=== PATIENT | male | born 1990 | race Caucasian/White ===

== ENCOUNTER 2018-01-01 03:11 | Emergency (ER) | payer OTHER ==
[2018-01-01] MEDS ORDERED: methylPREDNISolone SUCCINATE 125 MG/2 ML VIAL IVP STA (03:24)
[2018-01-01] MEDS ORDERED: FAMOTIDINE 20 MG/2 ML VIAL IVP STA (03:24)
[2018-01-01] MEDS ORDERED: ALBUTEROL NEB 2.5 MG/3 ML INH STA ×2 (03:24→04:07)
[2018-01-01] MEDS ORDERED: diphenhydrAMINE INJ 50 MG/ML VIAL IVP STA (03:24)
--- NOTE | 2018-01-01 03:42 | ED Physician Documentation ---
PD HPI DYSPNEA - Stated complaint Stated Complaint: DIFF BREATHING - Chief complaint Chief Complaint: Resp - History obtained from History obtained from: Patient - History of Present Illness Timing - onset: Today Timing - onset during: Rest Timing - details: Gradual onset, Still present Inciting event(s): Allergic rxn/anaphylaxis Improved by: O2 Associated symptoms: Wheezing Similar symptoms before: Treatment Recently seen: Not recently seen - Additional information Additional information: Patient is a 27 year old male who is presenting to the emergency department for wheezing and shortness of breath. 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 A few hours later patient developed wheezing and a cough. Upon initial evaluation in the emergency department patient did have diffuse wheezing and some throat irritation but no facial or oral swelling. Review of Systems Ten Systems: 10 systems reviewed and negative Cardiac: reports: Palpitations Respiratory: reports: Cough, Wheezing GI: denies: Nausea, Vomiting PD PAST MEDICAL HISTORY - Past Medical History Past Medical History: Yes Cardiovascular: Hypertension Respiratory: Asthma - Present Medications Home Medications: Ambulatory Orders Medication Instructions Recorded Confirmed predniSONE [Prednisone] 40 mg PO DAILY 5 Days tablet 01/01/18 - Allergies Allergies/Adverse Reactions: Allergies Allergy/AdvReac Type Severity Reaction Status Date / Time shrimp Allergy Respiratory Verified 01/01/18 03:16 - Social History Does the pt smoke?: No Smoking Status: Never smoker Does the pt drink ETOH?: Yes Does the pt have substance abuse?: No - Immunizations Immunizations are current?: Yes PD ED PE NORMAL - Vitals Vital signs reviewed: Yes - General General: Alert and oriented X 3 - HEENT HEENT: Atraumatic - Cardiac Cardiac: RRR - Abdomen Abdomen: Soft - Derm Derm: Normal color, Warm and dry, No rash - Extremities Extremities: No deformity - Neuro Neuro: Alert and oriented X 3 PD ED PE EXPANDED - Respiratory Respiratory: Labored, Wheezing. No: Rhonchi Results - Vitals Vitals: Vital Signs - 24 hr 01/01/18 01/01/18 01/01/18 03:13 03:35 03:42 Temperature 36.1 C L Heart Rate 84 88 92 Respiratory 24 18 20 Rate Blood Pressure 131/93 H 140/99 H O2 Saturation 96 98 01/01/18 01/01/18 04:06 04:13 Temperature Heart Rate 85 80 Respiratory 16 16 Rate Blood Pressure 150/95 H O2 Saturation 96 Oxygen O2 Source Room air PD MEDICAL DECISION MAKING - ED course Complexity details: reviewed old records, reviewed results, re-evaluated patient , considered differential, d/w patient, d/w family ED course: Patient was seen and examined at bedside. IV access was gained. patient was treated with benadryl, pepcid and solumedrol. patient refused epinephrine. Patient was then treated with a duoneb treatment which did improve his wheezing. Patient was treated with another albuterol treatment with good results. patient's symptoms had resolved and patient required no further work up and was stable for discharge with outpatient follow up. - Sepsis Event Vital Signs: Vital Signs - 24 hr 01/01/18 01/01/18 01/01/18 03:13 03:35 03:42 Temperature 36.1 C L Heart Rate 84 88 92 Respiratory 24 18 20 Rate Blood Pressure 131/93 H 140/99 H O2 Saturation 96 98 01/01/18 01/01/18 04:06 04:13 Temperature Heart Rate 85 80 Respiratory 16 16 Rate Blood Pressure 150/95 H O2 Saturation 96 Oxygen O2 Source Room air Departure - Departure Disposition: 01 Home, Self Care Clinical Impression: Allergic reaction Condition: Good Instructions: ED Allergic React Food Follow-Up: primary,care provider [Other] - Within 3 Days Prescriptions: predniSONE [Prednisone] 40 mg PO DAILY 5 Days tablet Comments: You should use your inhaler as needed. you will be on steroids for the next 5 days. you should follow up with your doctor if your symptoms don't improve. you may return to the emergency department at any time for new, worsening or uncontrollable symptoms.
[2018-01-01 04:07] VITALS: BP 150/95
== END 2018-01-01 04:38 | disposition home or self-care (01) ==
LOC: ED 03:11
DX: T78.1XXA Other adverse food reactions, not elsewhere classified, initial encounter (principal); R06.00 Dyspnea, unspecified; I10 Essential (primary) hypertension; Z91.013 Allergy to seafood
CPT/HCPCS: 94640; 94664; 96374; 96375; 99283; 99284